=== PATIENT | male | born 1975 | race Caucasian/White ===

== ENCOUNTER 2023-05-14 23:00 | Inpatient (IN) | payer MEDICAID ==
[~2023-05-14] VITALS: Ht 185.4 cm; Wt 146.2 kg
[2023-05-14] MEDS ORDERED: ipratropium/albuterol 3ml nebule NEB ONE (23:15)
[2023-05-14 23:46] VITALS: PULSE 99; RESP 22; O2SAT 95
[2023-05-14 23:58] VITALS: PULSE 95; RESP 32; O2SAT 97
[2023-05-15] VITALS (14 sets, daily range): BP systolic 154; BP diastolic 85; PULSE 65–102; RESP 16–24; TEMP 97.9; O2SAT 91–96
[2023-05-15 00:19] LABS: BASOPHILS % (AUTO) 0.2 % (0-1); EOSINOPHILS # (AUTO) 0.1 X10'3 (0-0.9); EOSINOPHILS % (AUTO) 0.7 % (0-6); HEMATOCRIT 52.3 % (42.0-52.0); HEMOGLOBIN 17.6 g/dl (14.0-17.9); LYMPHOCYTES # (AUTO) 0.5 X10'3 (1.1-4.8); MEAN CORPUSCULAR HEMOGLOBIN 28.8 PG (27.0-31.0); MEAN CORPUSCULAR HGB CONC 33.6 g/dL (33.0-36.5); MEAN CORPUSCULAR VOLUME 85.8 FL (78-98); MEAN PLATELET VOLUME 7.9 FL (7.4-10.4); MONOCYTES # (AUTO) 0.6 X10'3 (0-0.9); MONOCYTES % (AUTO) 5.2 % (2-12); NEUTROPHILS # (AUTO) 10.3 X10'3 (1.8-7.7); NEUTROPHILS % (AUTO) 89.9 % (42-75); PLATELET COUNT 177 X10'3 (140-440); RED CELL DISTRIBUTION WIDTH 14.9 % (11.5-14.5); WHITE BLOOD COUNT 11.4 X10'3 (4.5-11.0)
[2023-05-15 01:00] LABS: ALANINE AMINOTRANSFERASE 15 U/L (12-78); ALBUMIN 3.5 G/DL (3.4-5.0); ALBUMIN/GLOBULIN RATIO 1.1 (1.1-1.5); ALKALINE PHOSPHATASE 76 IU/L (46-116); ANION GAP 9 (8-16); ASPARTATE AMINO TRANSFERASE 14 U/L (10-37); BILIRUBIN,TOTAL 1.5 MG/DL (0.1-1.0); BLOOD UREA NITROGEN 8 MG/DL (7-18); BUN/CREATININE RATIO 6.5 (10.0-20.0); CALCIUM 8.7 MG/DL (8.5-10.1); CHLORIDE 98 MMOL/L (99-107); CREATININE 1.23 MG/DL (0.60-1.10); GLUCOSE 105 MG/DL (70-104); POTASSIUM 3.8 MMOL/L (3.5-5.1); SODIUM 137 MMOL/L (135-145); TOTAL CARBON DIOXIDE 30.2 MMOL/L (24-32); TOTAL PROTEIN 6.7 G/DL (6.4-8.2); eCRCL 81 ML/MIN; eGFR 62 ML/MIN
[2023-05-15 01:07] LABS: PRO BRAIN NATRIURETIC PEPTIDE 683 PG/ML (0-125)
[2023-05-15] MEDS ORDERED: azithromycin/NS 500mg/250ml 250 ML IV ONE (01:50)
[2023-05-15] MEDS ORDERED: methylPREDNISolone sod succ 125mg/2ml vial IV ONE (01:50)
[2023-05-15] MEDS ORDERED: CefTRIAXone/D5W-Rocephin 1gm 50 ML IV ONE (01:50)
[2023-05-15] MEDS ORDERED: furosemide 10 MG/1 ML 10ml inj IV ONE (02:30)
[2023-05-15] MEDS ORDERED: albuterol 2.5 MG/3 ML nebule NEB PRN (02:30)
[2023-05-15] MEDS ORDERED: potassium Cl 20 mEq SR tablet PO PRN ×2 (02:35)
[2023-05-15] MEDS ORDERED: ondansetron/PF 4mg/2ml inj IV PRN (02:35)
[2023-05-15] MEDS ORDERED: acetaminophen 325mg tablet PO PRN (02:35)
[2023-05-15] MEDS ORDERED: mag hydrox/Alum hydrox/simeth 30ml oral suspension PO PRN (02:35)
[2023-05-15] MEDS ORDERED: potassium Cl 40MEQ/1/2NS 520ml 520 ML IV PRN (02:35)
[2023-05-15] MEDS ORDERED: magnesium 4gm in 100ml NS 100 ML IV PRN (02:35)
[2023-05-15] MEDS ORDERED: PERFLUTREN PROTEIN-A MICROSPHR (Optison) 0.22 MG/ML 3ML VIAL IV ONE (02:35)
[2023-05-15] MEDS ORDERED: magnesium 2GM in 50ml NS 50 ML IV PRN (02:35)
--- NOTE | 2023-05-15 03:34 | NUR ---
Urine output 200mL post lasix
--- NOTE | 2023-05-15 03:42 | NUR ---
100mL urine output
[2023-05-15] MEDS: ipratropium/albuterol 3ml nebule NEB SCH ×6 (04:03→23:38)
--- NOTE | 2023-05-15 05:33 | NUR ---
800mL urine output
--- NOTE | 2023-05-15 05:57 | NUR ---
600mL urine output
[2023-05-15 06:23] LABS: MAGNESIUM 2.1 MG/DL (1.5-2.4)
[2023-05-15] MEDS: azithromycin 250mg tablet PO SCH (07:37)
[2023-05-15] MEDS: docusate sod 100mg capsule PO SCH ×3 (07:39→20:06)
[2023-05-15] MEDS: methylPREDNISolone sod succ 125mg/2ml vial IV SCH ×3 (07:40→20:05)
[2023-05-15] MEDS: heparin, porcine 5000 units/ml vial SQ SCH ×2 (07:47→20:06)
--- NOTE | 2023-05-15 07:52 | NUR ---
education technician at bedside.
[2023-05-15] MEDS: CefTRIAXone/D5W-Rocephin 1gm 50 ML IV SCH (08:00)
[2023-05-15] MEDS: K and/or MAG REPLACEMENT MC SCH ×2 (08:00→19:00)
[2023-05-15] MEDS: furosemide 10 MG/1 ML 10ml inj IV SCH ×2 (09:20→20:06)
[2023-05-15] MEDS ORDERED: NO HOME MEDS (13:10)
--- NOTE | 2023-05-15 19:35 | NUR ---
pt visitor at bedside.
--- NOTE | 2023-05-15 20:15 | NUR ---
pt up to restroom, even steady gait. visitor leaving for the night.
--- NOTE | 2023-05-15 20:34 | NUR ---
PT STATES WANTS TO TRY TO GO WITHOUT OXYEGN AFTER RESTROOM. PT SPO2 94% ON ROOM AIR CURRENTLY. PT WANTS TO TRY TO FALL ASLEEP WITHOUT OXYGEN ON AND SEE HOW IT GOES.
--- NOTE | 2023-05-15 22:00 | NUR ---
Patient in room ORTHO 4022. I have received report from GUALBERTO Sharpe and had the opportunity to ask questions and assume patient care.
--- NOTE | 2023-05-15 22:05 | NUR ---
pt arrived via wheelchair. ambulated to bed. oriented to the room. settled into bed. call light in reach.
[2023-05-16] VITALS (17 sets, daily range): BP systolic 133–145; BP diastolic 54–82; PULSE 68–95; RESP 16–22; TEMP 97.4–97.6; O2SAT 92–98
[2023-05-16] MEDS: ipratropium/albuterol 3ml nebule NEB SCH ×6 (03:26→23:10)
[2023-05-16 06:17] LABS: BASOPHILS # (AUTO) 0.1 X10'3 (0-0.2); BASOPHILS % (AUTO) 0.5 % (0-1); EOSINOPHILS % (AUTO) 0 % (0-6); HEMATOCRIT 54.3 % (42.0-52.0); LYMPHOCYTES # (AUTO) 0.4 X10'3 (1.1-4.8); LYMPHOCYTES % (AUTO) 2.1 % (21-51); MEAN CORPUSCULAR HEMOGLOBIN 28.5 PG (27.0-31.0); MEAN CORPUSCULAR HGB CONC 33.4 g/dL (33.0-36.5); MEAN CORPUSCULAR VOLUME 85.3 FL (78-98); MEAN PLATELET VOLUME 8.5 FL (7.4-10.4); MONOCYTES % (AUTO) 5.7 % (2-12); NEUTROPHILS # (AUTO) 15.9 X10'3 (1.8-7.7); NEUTROPHILS % (AUTO) 91.7 % (42-75); PLATELET COUNT 216 X10'3 (140-440); RED BLOOD COUNT 6.36 X10'6 (4.70-6.10); RED CELL DISTRIBUTION WIDTH 15.1 % (11.5-14.5); WHITE BLOOD COUNT 17.4 X10'3 (4.5-11.0)
[2023-05-16 06:28] LABS: HEMOGLOBIN 18.1 g/dl (14.0-17.9)
--- NOTE | 2023-05-16 06:40 | NUR ---
Problems reprioritized. Patient report given, questions answered & plan of care reviewed with GUALBERTO Charlton.
[2023-05-16 06:48] LABS: ALANINE AMINOTRANSFERASE 16 U/L (12-78); ALBUMIN 3.2 G/DL (3.4-5.0); ALBUMIN/GLOBULIN RATIO 0.9 (1.1-1.5); ALKALINE PHOSPHATASE 68 IU/L (46-116); ANION GAP 8 (8-16); ASPARTATE AMINO TRANSFERASE 16 U/L (10-37); BILIRUBIN,TOTAL 0.7 MG/DL (0.1-1.0); BLOOD UREA NITROGEN 21 MG/DL (7-18); BUN/CREATININE RATIO 17.5 (10.0-20.0); CALCIUM 8.3 MG/DL (8.5-10.1); CHLORIDE 100 MMOL/L (99-107); GLUCOSE 144 MG/DL (70-104); MAGNESIUM 2.2 MG/DL (1.5-2.4); POTASSIUM 3.8 MMOL/L (3.5-5.1); SODIUM 137 MMOL/L (135-145); TOTAL CARBON DIOXIDE 29.2 MMOL/L (24-32); TOTAL PROTEIN 6.7 G/DL (6.4-8.2); eCRCL 83 ML/MIN; eGFR 64 ML/MIN
--- NOTE | 2023-05-16 06:55 | NUR ---
Patient in room ORTHO 4022. I have received report from GUALBERTO Amos and had the opportunity to ask questions and assume patient care.
[2023-05-16] MEDS: K and/or MAG REPLACEMENT MC SCH ×2 (08:00→19:29)
[2023-05-16] MEDS: docusate sod 100mg capsule PO SCH (08:00)
--- NOTE | 2023-05-16 08:03 | NUR ---
PAGER ID: [phone] MESSAGE: [email or web address]- [id number] pt room 402- Bill Traore- critical lab value hgb: 18.1H
[2023-05-16] MEDS: CefTRIAXone/D5W-Rocephin 1gm 50 ML IV SCH (08:16)
[2023-05-16] MEDS: azithromycin 250mg tablet PO SCH (08:16)
[2023-05-16] MEDS: heparin, porcine 5000 units/ml vial SQ SCH ×2 (08:18→19:34)
[2023-05-16] MEDS: furosemide 10 MG/1 ML 10ml inj IV SCH ×2 (08:19→19:33)
[2023-05-16] MEDS: methylPREDNISolone sod succ 125mg/2ml vial IV SCH (08:19)
[2023-05-16] MEDS: methylPREDNISolone sod succ/PF 40mg inj. IV SCH ×2 (08:50→19:34)
--- NOTE | 2023-05-16 11:25 | NUR ---
CPAP ordered for pt. Per pt, no history of SHANKAR or CPAP usage. No SOB. No current indication of CPAP need. CPAP not in use, and not in room. Addendum: 05/16/23 at 1127 by Debra Britton RT Amended: Links added.
--- NOTE | 2023-05-16 18:29 | NUR ---
Problems reprioritized. Patient report given, questions answered & plan of care reviewed with GUALBERTO Elkins. Addendum: 05/16/23 at 1842 by Latesha Mcneil RN patient was not repriortized with Brittni, but with RN. Will make a correct note
--- NOTE | 2023-05-16 18:42 | NUR ---
Problems reprioritized. Patient report given, questions answered & plan of care reviewed with GUALBERTO Roberts.
[2023-05-17] VITALS (11 sets, daily range): BP systolic 139–155; BP diastolic 60–84; PULSE 71–95; RESP 16–20; TEMP 98–98.3; O2SAT 94–98
[2023-05-17] MEDS: ipratropium/albuterol 3ml nebule NEB SCH ×4 (03:06→14:54)
--- NOTE | 2023-05-17 06:16 | NUR ---
Problems reprioritized. Patient report given, questions answered & plan of care reviewed with JAGRUTI BURCIAGA.
--- NOTE | 2023-05-17 06:20 | NUR ---
Problems reprioritized. Patient report given, questions answered & plan of care reviewed with JAGRUTI BURCIAGA.
[2023-05-17 06:58] LABS: BASOPHILS % (AUTO) 0.1 % (0-1); EOSINOPHILS % (AUTO) 0 % (0-6); HEMATOCRIT 54.3 % (42.0-52.0); HEMOGLOBIN 17.8 g/dl (14.0-17.9); LYMPHOCYTES # (AUTO) 0.7 X10'3 (1.1-4.8); LYMPHOCYTES % (AUTO) 4.4 % (21-51); MEAN CORPUSCULAR HEMOGLOBIN 28.3 PG (27.0-31.0); MEAN CORPUSCULAR HGB CONC 32.9 g/dL (33.0-36.5); MEAN CORPUSCULAR VOLUME 86.2 FL (78-98); MEAN PLATELET VOLUME 8.4 FL (7.4-10.4); MONOCYTES # (AUTO) 0.8 X10'3 (0-0.9); NEUTROPHILS # (AUTO) 14.9 X10'3 (1.8-7.7); NEUTROPHILS % (AUTO) 90.5 % (42-75); PLATELET COUNT 238 X10'3 (140-440); RED CELL DISTRIBUTION WIDTH 15.1 % (11.5-14.5); WHITE BLOOD COUNT 16.5 X10'3 (4.5-11.0)
[2023-05-17 07:05] LABS: ALANINE AMINOTRANSFERASE 24 U/L (12-78); ALBUMIN 3.2 G/DL (3.4-5.0); ALKALINE PHOSPHATASE 70 IU/L (46-116); ANION GAP 3 (8-16); ASPARTATE AMINO TRANSFERASE 16 U/L (10-37); BILIRUBIN,TOTAL 0.4 MG/DL (0.1-1.0); BLOOD UREA NITROGEN 20 MG/DL (7-18); BUN/CREATININE RATIO 18.3 (10.0-20.0); CALCIUM 8.7 MG/DL (8.5-10.1); CHLORIDE 100 MMOL/L (99-107); CREATININE 1.09 MG/DL (0.60-1.10); GLUCOSE 161 MG/DL (70-104); MAGNESIUM 2.1 MG/DL (1.5-2.4); POTASSIUM 3.9 MMOL/L (3.5-5.1); SODIUM 136 MMOL/L (135-145); TOTAL PROTEIN 6.5 G/DL (6.4-8.2); eCRCL 92 ML/MIN; eGFR 72 ML/MIN
[2023-05-17] MEDS: K and/or MAG REPLACEMENT MC SCH (08:00)
[2023-05-17] MEDS: methylPREDNISolone sod succ/PF 40mg inj. IV SCH (09:02)
[2023-05-17] MEDS: furosemide 10 MG/1 ML 10ml inj IV SCH (09:04)
[2023-05-17] MEDS: azithromycin 250mg tablet PO SCH (09:04)
[2023-05-17] MEDS: CefTRIAXone/D5W-Rocephin 1gm 50 ML IV SCH (09:04)
[2023-05-17] MEDS: heparin, porcine 5000 units/ml vial SQ SCH (09:06)
[2023-05-17] MEDS ORDERED: LEVO-65 PO (11:14)
[2023-05-17] MEDS ORDERED: PRED10TA23 PO (11:14)
[2023-05-17] MEDS ORDERED: ALBU2.5V7 NEB (11:14)
--- NOTE | 2023-05-17 15:29 | NUR ---
Pt discharged in stable condition with all belongings
[2023-05-17] MEDS ORDERED: FURO20TA4 PO (16:28)
== END 2023-05-17 15:30 | disposition home or self-care (01) | DRG 140 ==
LOC: ER 23:01 → ED HOLD 05-15 02:39 → ORTHO 4S 05-15 22:04
PROVIDERS: ADMIT Family Medicine; ATTEND Internal Medicine
DX: J44.1 Chronic obstructive pulmonary disease with (acute) exacerbation (principal); J96.01 Acute respiratory failure with hypoxia; I50.31 Acute diastolic (congestive) heart failure; G47.33 Obstructive sleep apnea (adult) (pediatric); F17.210 Nicotine dependence, cigarettes, uncomplicated; N28.9 Disorder of kidney and ureter, unspecified; F14.20 Cocaine dependence, uncomplicated; Z71.6 Tobacco abuse counseling; Z20.822 Contact with and (suspected) exposure to COVID-19
CPT/HCPCS: 36415; 71045; 80053; 83735; 83880; 84484; 85025; 87081; 87811; 93306; 94640; 94760; 99285; G0378; J0456; J0696; J1644; J1940; J2920; J2930

== ENCOUNTER 2023-06-15 15:43 | Inpatient (IN) | payer MEDICAID ==
[~2023-06-15] VITALS: Ht 185.4 cm; Wt 148.5 kg
[~2023-06-15 15:43] MED LIST: ALBU2.5V7 NEB; FURO20TA4 PO; LEVO-65 PO
[2023-06-15 17:45] LABS: BILIRUBIN,URINE SMALL (Neg); CLARITY,URINE CLEAR (Clear); COLOR,URINE YELLOW (Yellow); GLUCOSE, URINE NEGATIVE (Neg); KETONES,URINE TRACE mg/dl (Neg); LEUKOCYTE ESTERASE ,URINE NEGATIVE (Neg); NITRITES, URINE NEGATIVE (Neg); OCCULT BLOOD,URINE MODERATE (Neg); PH,URINE 6.5 (4.8-8.0); PROTEIN,URINE NEGATIVE (Neg)
[2023-06-15 17:46] LABS: UA COLLECTION TYPE CLN CATCH MIDSTREAM
[2023-06-15 17:59] LABS: MUCUS STRANDS MANY /LPF (Neg); SQUAMOUS EPITHELIAL CELL,UR FEW /LPF (FEW)
[2023-06-15 18:00] LABS: BACTERIA,URINE FEW /HPF (Neg); WBC,URINE 0-4 /HPF (0-4)
[2023-06-15] MEDS ORDERED: iohexol 350MG/ML 100ml bottle IV ONE (18:07)
[2023-06-15 18:23] LABS: EOSINOPHILS % (AUTO) 0.1 % (0-6)
[2023-06-15 18:25] LABS: BASOPHILS # (AUTO) 0.1 X10'3 (0-0.2); BASOPHILS % (AUTO) 0.4 % (0-1); HEMATOCRIT 54.1 % (42.0-52.0); LYMPHOCYTES # (AUTO) 1.1 X10'3 (1.1-4.8); LYMPHOCYTES % (AUTO) 5.6 % (21-51); MEAN CORPUSCULAR HEMOGLOBIN 28.4 PG (27.0-31.0); MEAN CORPUSCULAR HGB CONC 33.7 g/dL (33.0-36.5); MEAN CORPUSCULAR VOLUME 84.2 FL (78-98); MEAN PLATELET VOLUME 7.6 FL (7.4-10.4); MONOCYTES # (AUTO) 1.3 X10'3 (0-0.9); MONOCYTES % (AUTO) 6.3 % (2-12); NEUTROPHILS # (AUTO) 17.6 X10'3 (1.8-7.7); NEUTROPHILS % (AUTO) 87.6 % (42-75); PLATELET COUNT 230 X10'3 (140-440); RED BLOOD COUNT 6.43 X10'6 (4.70-6.10); RED CELL DISTRIBUTION WIDTH 15.1 % (11.5-14.5)
[2023-06-15 18:28] LABS: HEMOGLOBIN 18.2 g/dl (14.0-17.9)
[2023-06-15 18:42] LABS: ALANINE AMINOTRANSFERASE 19 U/L (12-78); ALBUMIN 3.5 G/DL (3.4-5.0); ALBUMIN/GLOBULIN RATIO 0.9 (1.1-1.5); ALKALINE PHOSPHATASE 81 IU/L (46-116); ANION GAP 9 (8-16); ASPARTATE AMINO TRANSFERASE 15 U/L (10-37); BILIRUBIN,TOTAL 2.4 MG/DL (0.1-1.0); BLOOD UREA NITROGEN 13 MG/DL (7-18); BUN/CREATININE RATIO 11.1 (10.0-20.0); CHLORIDE 95 MMOL/L (99-107); CREATININE 1.17 MG/DL (0.60-1.10); GLUCOSE 104 MG/DL (70-104); POTASSIUM 3.8 MMOL/L (3.5-5.1); SODIUM 132 MMOL/L (135-145); TOTAL CARBON DIOXIDE 28.5 MMOL/L (24-32); TOTAL PROTEIN 7.5 G/DL (6.4-8.2); eCRCL 85 ML/MIN; eGFR 66 ML/MIN
[2023-06-15] MEDS ORDERED: MEROPENEM 1GM/NS 100ML IVPB 100 ML IV ONE (19:55)
[2023-06-15] MEDS ORDERED: vancomycin/NS 1 GM ADD-VANTAGE 250 ML X 1 DOSE IV ONE (19:55)
[2023-06-15] MEDS ORDERED: temazepam 15mg capsule PO PRN (21:00)
[2023-06-15] MEDS ORDERED: BUDE10.22 PO (21:31)
[2023-06-15] MEDS ORDERED: AMLO10TA13 PO (21:31)
[2023-06-15] MEDS ORDERED: SACU1TAB PO (21:31)
[2023-06-15] MEDS ORDERED: ALBU90AE2 INH (21:31)
[2023-06-15] MEDS ORDERED: metoclopramide 5 mg/ml inj IV PRN (22:30)
[2023-06-15] MEDS ORDERED: mag hydrox/Alum hydrox/simeth 30ml oral suspension PO PRN (22:30)
[2023-06-15] MEDS ORDERED: diphenhydrAMINE 25mg capsule PO PRN (22:30)
[2023-06-15] MEDS ORDERED: magnesium hydroxide 30ml (MOM) UD suspension PO PRN (22:30)
[2023-06-15] MEDS ORDERED: ondansetron/PF 4mg/2ml inj IV PRN (22:30)
[2023-06-15] MEDS ORDERED: morphine 2 MG/ML inj. syringe IV PRN (22:30)
[2023-06-15] MEDS ORDERED: bisacodyl 10mg suppository rectal RC PRN (22:30)
[2023-06-15] MEDS ORDERED: ondansetron 4mg rapidly disintigrating tab PO PRN (22:30)
[2023-06-15] MEDS ORDERED: HYDROcodone/acetaminophen 5mg/325mg tablet PO PRN (22:30)
[2023-06-15] MEDS ORDERED: HYDROmorphone inj. 0.5 MG/0.5 ML DISP.SYRIN IV PRN (22:30)
[2023-06-15] MEDS ORDERED: acetaminophen 325mg tablet PO PRN (22:30)
[2023-06-15] MEDS ORDERED: HYDROcodone/acetaminophen 10/325mg tab PO PRN (22:30)
[2023-06-15] MEDS ORDERED: diphenhydrAMINE 50 mg/ml inj IV PRN (22:30)
[2023-06-15 23:06] LABS: MAGNESIUM 1.8 MG/DL (1.5-2.4); PHOSPHORUS 2.9 MG/DL (2.3-4.5); PRO BRAIN NATRIURETIC PEPTIDE 221 PG/ML (0-125)
[2023-06-15] MEDS: sodium chloride 0.45% 1,000 ML IV SCH (23:42)
[2023-06-16] VITALS (10 sets, daily range): BP systolic 132–162; BP diastolic 59–75; PULSE 78–96; RESP 16–20; TEMP 97.5–98.8; O2SAT 92–96
[2023-06-16 00:06] LABS: APTT 33 SECONDS (22-32); INR 1.1 INR; PROTHROMBIN TIME 12.1 SECONDS (9.0-12.0)
[2023-06-16 00:26] LABS: URINE AMPHETAMINE SCREEN NEGATIVE (Neg); URINE BARBITUATE SCREEN NEGATIVE (Neg); URINE BENZODIAZEPINES SCREEN NEGATIVE (Neg); URINE CANNABINOID SCREEN POSITIVE (Neg); URINE COCAINE SCREEN NEGATIVE (Neg); URINE METHADONE SCREEN NEGATIVE (Neg); URINE OPIATE SCREEN NEGATIVE (Neg); URINE PHENCYCLIDINE SCREEN NEGATIVE (Neg)
[2023-06-16 03:24] LABS: BASOPHILS # (AUTO) 0.1 X10'3 (0-0.2); BASOPHILS % (AUTO) 0.3 % (0-1); EOSINOPHILS % (AUTO) 0.1 % (0-6); HEMATOCRIT 49.8 % (42.0-52.0); HEMOGLOBIN 16.8 g/dl (14.0-17.9); LYMPHOCYTES # (AUTO) 1.4 X10'3 (1.1-4.8); LYMPHOCYTES % (AUTO) 6.3 % (21-51); MEAN CORPUSCULAR HEMOGLOBIN 28.2 PG (27.0-31.0); MEAN CORPUSCULAR HGB CONC 33.8 g/dL (33.0-36.5); MEAN CORPUSCULAR VOLUME 83.6 FL (78-98); MONOCYTES # (AUTO) 1.4 X10'3 (0-0.9); MONOCYTES % (AUTO) 6.5 % (2-12); NEUTROPHILS # (AUTO) 18.6 X10'3 (1.8-7.7); NEUTROPHILS % (AUTO) 86.8 % (42-75); PLATELET COUNT 215 X10'3 (140-440); RED BLOOD COUNT 5.96 X10'6 (4.70-6.10); RED CELL DISTRIBUTION WIDTH 14.7 % (11.5-14.5); WHITE BLOOD COUNT 21.4 X10'3 (4.5-11.0)
[2023-06-16] MEDS: piperacillin/tazo 4.5gm/100ml 100 ML IV SCH ×3 (03:26→21:05)
[2023-06-16 03:38] LABS: ALANINE AMINOTRANSFERASE 20 U/L (12-78); ALBUMIN 3.2 G/DL (3.4-5.0); ALBUMIN/GLOBULIN RATIO 0.9 (1.1-1.5); ALKALINE PHOSPHATASE 75 IU/L (46-116); ANION GAP 9 (8-16); ASPARTATE AMINO TRANSFERASE 14 U/L (10-37); BILIRUBIN,TOTAL 2.1 MG/DL (0.1-1.0); BLOOD UREA NITROGEN 13 MG/DL (7-18); BUN/CREATININE RATIO 11.1 (10.0-20.0); CALCIUM 8.9 MG/DL (8.5-10.1); CHLORIDE 96 MMOL/L (99-107); CREATININE 1.17 MG/DL (0.60-1.10); GLUCOSE 98 MG/DL (70-104); POTASSIUM 3.9 MMOL/L (3.5-5.1); SODIUM 132 MMOL/L (135-145); TOTAL CARBON DIOXIDE 27.1 MMOL/L (24-32); TOTAL PROTEIN 6.9 G/DL (6.4-8.2); eCRCL 85 ML/MIN; eGFR 66 ML/MIN
[2023-06-16] MEDS: vancomycin/NS 1 GM ADD-VANTAGE 250 ML IV SCH ×2 (06:35→15:46)
[2023-06-16] MEDS: pantoprazole 40mg Tablet.DR PO SCH (07:30)
[2023-06-16] MEDS: docusate sod 100mg capsule PO SCH ×2 (08:00→21:06)
[2023-06-16] MEDS: sodium chloride 0.45% 1,000 ML IV SCH ×2 (08:53→21:06)
[2023-06-16] MEDS: heparin, porcine 5000 units/ml vial SQ SCH (15:47)
[2023-06-16] MEDS: albuterol 2.5 MG/3 ML nebule NEB PRN (20:26)
[2023-06-16] MEDS: budesonide 0.5mg/2ml UD nebule IH SCH (20:26)
[2023-06-16] MEDS: sacubitril/valsartan 24mg-26mg tablet PO SCH (21:06)
[2023-06-16] MEDS ORDERED: VANCOMYCIN LEVEL IV ONE (21:30)
[2023-06-17] VITALS (10 sets, daily range): BP systolic 117–153; BP diastolic 50–74; PULSE 66–87; RESP 16–19; TEMP 97.8–98.4; O2SAT 95–99
[2023-06-17] MEDS: vancomycin/NS 1 GM ADD-VANTAGE 250 ML IV SCH ×2 (00:44→06:27)
[2023-06-17] MEDS: heparin, porcine 5000 units/ml vial SQ SCH ×4 (00:51→23:54)
[2023-06-17] MEDS: sodium chloride 0.45% 1,000 ML IV SCH ×2 (04:30→14:47)
[2023-06-17] MEDS: piperacillin/tazo 4.5gm/100ml 100 ML IV SCH ×3 (05:07→21:00)
[2023-06-17 06:57] LABS: BASOPHILS # (AUTO) 0.1 X10'3 (0-0.2); BASOPHILS % (AUTO) 0.4 % (0-1); EOSINOPHILS # (AUTO) 0.2 X10'3 (0-0.9); EOSINOPHILS % (AUTO) 1.2 % (0-6); HEMATOCRIT 46.5 % (42.0-52.0); HEMOGLOBIN 15.5 g/dl (14.0-17.9); LYMPHOCYTES # (AUTO) 1.6 X10'3 (1.1-4.8); MEAN CORPUSCULAR HEMOGLOBIN 28.3 PG (27.0-31.0); MEAN CORPUSCULAR HGB CONC 33.4 g/dL (33.0-36.5); MEAN CORPUSCULAR VOLUME 84.8 FL (78-98); MEAN PLATELET VOLUME 7.6 FL (7.4-10.4); MONOCYTES % (AUTO) 6.4 % (2-12); NEUTROPHILS # (AUTO) 13.2 X10'3 (1.8-7.7); PLATELET COUNT 197 X10'3 (140-440); RED BLOOD COUNT 5.48 X10'6 (4.70-6.10); RED CELL DISTRIBUTION WIDTH 14.6 % (11.5-14.5); WHITE BLOOD COUNT 16.1 X10'3 (4.5-11.0)
[2023-06-17 07:06] LABS: ALANINE AMINOTRANSFERASE 8 U/L (12-78); ALBUMIN 2.7 G/DL (3.4-5.0); ALBUMIN/GLOBULIN RATIO 0.7 (1.1-1.5); ALKALINE PHOSPHATASE 61 IU/L (46-116); ANION GAP 7 (8-16); ASPARTATE AMINO TRANSFERASE 16 U/L (10-37); BILIRUBIN,TOTAL 0.9 MG/DL (0.1-1.0); BLOOD UREA NITROGEN 11 MG/DL (7-18); BUN/CREATININE RATIO 10.9 (10.0-20.0); CALCIUM 8.6 MG/DL (8.5-10.1); CHLORIDE 99 MMOL/L (99-107); CREATININE 1.01 MG/DL (0.60-1.10); GLUCOSE 87 MG/DL (70-104); POTASSIUM 3.3 MMOL/L (3.5-5.1); SODIUM 136 MMOL/L (135-145); TOTAL CARBON DIOXIDE 29.8 MMOL/L (24-32); TOTAL PROTEIN 6.6 G/DL (6.4-8.2); eCRCL 99 ML/MIN; eGFR 78 ML/MIN
[2023-06-17] MEDS: docusate sod 100mg capsule PO SCH ×2 (08:00→21:00)
[2023-06-17] MEDS: budesonide 0.5mg/2ml UD nebule IH SCH ×2 (08:10→20:57)
[2023-06-17] MEDS: ipratropium/albuterol 3ml nebule NEB PRN (08:11)
[2023-06-17] MEDS: pantoprazole 40mg Tablet.DR PO SCH (09:46)
[2023-06-17] MEDS: amLODIPine 5mg tablet PO SCH (09:47)
[2023-06-17] MEDS: sacubitril/valsartan 24mg-26mg tablet PO SCH ×2 (09:48→20:58)
[2023-06-17] MEDS ORDERED: magnesium 2GM in 50ml NS 50 ML IV PRN (10:15)
[2023-06-17] MEDS ORDERED: potassium Cl 20 mEq SR tablet PO PRN ×2 (10:15)
[2023-06-17] MEDS ORDERED: oxyCODONE/APAP 5-325mg tablet PO PRN (10:15)
[2023-06-17] MEDS ORDERED: magnesium 4gm in 100ml NS 100 ML IV PRN (10:15)
[2023-06-17] MEDS ORDERED: potassium Cl 40MEQ/1/2NS 520ml 520 ML IV PRN (10:15)
[2023-06-17] MEDS: oxyCODONE/APAP 10/325mg tablet PO PRN ×2 (11:20→21:16)
[2023-06-17] MEDS: fluconazole-Diflucan 200mg/NS 100 ML IV SCH (13:08)
[2023-06-17] MEDS: VANCOmycin 1250MG/NS 250ml Bag 250 ML IV SCH ×2 (16:39→23:50)
[2023-06-17] MEDS: K and/or MAG REPLACEMENT MC SCH (20:00)
[2023-06-17] MEDS: albuterol 2.5 MG/3 ML nebule NEB PRN (20:57)
[2023-06-18] VITALS (9 sets, daily range): BP systolic 124–140; BP diastolic 58–86; PULSE 68–80; RESP 16–22; TEMP 97.4–98.1; O2SAT 94–97
[2023-06-18] MEDS: oxyCODONE/APAP 10/325mg tablet PO PRN ×3 (02:19→19:55)
[2023-06-18] MEDS: sodium chloride 0.45% 1,000 ML IV SCH ×3 (02:50→13:41)
[2023-06-18] MEDS: piperacillin/tazo 4.5gm/100ml 100 ML IV SCH ×3 (04:24→19:49)
[2023-06-18 06:30] LABS: BASOPHILS % (AUTO) 0.2 % (0-1); EOSINOPHILS # (AUTO) 0.3 X10'3 (0-0.9); EOSINOPHILS % (AUTO) 2.2 % (0-6); HEMATOCRIT 45.3 % (42.0-52.0); HEMOGLOBIN 15.1 g/dl (14.0-17.9); LYMPHOCYTES # (AUTO) 1.3 X10'3 (1.1-4.8); LYMPHOCYTES % (AUTO) 9.1 % (21-51); MEAN CORPUSCULAR HEMOGLOBIN 28.4 PG (27.0-31.0); MEAN CORPUSCULAR HGB CONC 33.3 g/dL (33.0-36.5); MEAN CORPUSCULAR VOLUME 85.1 FL (78-98); MEAN PLATELET VOLUME 7.6 FL (7.4-10.4); MONOCYTES # (AUTO) 0.8 X10'3 (0-0.9); MONOCYTES % (AUTO) 6.1 % (2-12); NEUTROPHILS # (AUTO) 11.3 X10'3 (1.8-7.7); NEUTROPHILS % (AUTO) 82.4 % (42-75); PLATELET COUNT 233 X10'3 (140-440); RED BLOOD COUNT 5.32 X10'6 (4.70-6.10); RED CELL DISTRIBUTION WIDTH 15.2 % (11.5-14.5); WHITE BLOOD COUNT 13.7 X10'3 (4.5-11.0)
[2023-06-18 06:31] LABS: ALANINE AMINOTRANSFERASE 29 U/L (12-78); ALBUMIN 2.8 G/DL (3.4-5.0); ALBUMIN/GLOBULIN RATIO 0.7 (1.1-1.5); ALKALINE PHOSPHATASE 69 IU/L (46-116); ANION GAP 6 (8-16); ASPARTATE AMINO TRANSFERASE 25 U/L (10-37); BILIRUBIN,TOTAL 0.6 MG/DL (0.1-1.0); BLOOD UREA NITROGEN 7 MG/DL (7-18); BUN/CREATININE RATIO 6.3 (10.0-20.0); CALCIUM 8.5 MG/DL (8.5-10.1); CHLORIDE 100 MMOL/L (99-107); CREATININE 1.12 MG/DL (0.60-1.10); GLUCOSE 112 MG/DL (70-104); POTASSIUM 3.8 MMOL/L (3.5-5.1); SODIUM 136 MMOL/L (135-145); TOTAL CARBON DIOXIDE 30.3 MMOL/L (24-32); TOTAL PROTEIN 6.8 G/DL (6.4-8.2); eCRCL 89 ML/MIN; eGFR 69 ML/MIN
[2023-06-18] MEDS: K and/or MAG REPLACEMENT MC SCH ×2 (07:34→20:00)
[2023-06-18] MEDS: docusate sod 100mg capsule PO SCH ×2 (07:42→19:57)
[2023-06-18] MEDS: sacubitril/valsartan 24mg-26mg tablet PO SCH ×2 (07:43→19:55)
[2023-06-18] MEDS: amLODIPine 5mg tablet PO SCH (07:43)
[2023-06-18] MEDS: pantoprazole 40mg Tablet.DR PO SCH (07:43)
[2023-06-18] MEDS: heparin, porcine 5000 units/ml vial SQ SCH ×2 (07:45→16:20)
[2023-06-18] MEDS: VANCOmycin 1250MG/NS 250ml Bag 250 ML IV SCH (07:47)
[2023-06-18] MEDS: ipratropium/albuterol 3ml nebule NEB PRN (08:32)
[2023-06-18] MEDS: budesonide 0.5mg/2ml UD nebule IH SCH ×2 (08:32→20:06)
[2023-06-18] MEDS: morphine 2 MG/ML inj. syringe IV PRN ×2 (09:06→13:39)
[2023-06-18] MEDS: fluconazole-Diflucan 200mg/NS 100 ML IV SCH (09:09)
[2023-06-18] MEDS ORDERED: VANCOMYCIN LEVEL IV ONE (14:30)
[2023-06-18] MEDS: VANCOMYCIN 1,500MG in NS 300ml IVPB IV SCH (16:18)
[2023-06-19] MEDS: VANCOMYCIN 1,500MG in NS 300ml IVPB IV SCH ×2 (00:58→08:19)
[2023-06-19] MEDS: heparin, porcine 5000 units/ml vial SQ SCH ×2 (00:59→07:24)
[2023-06-19] MEDS: sodium chloride 0.45% 1,000 ML IV SCH (01:02)
[2023-06-19] MEDS: piperacillin/tazo 4.5gm/100ml 100 ML IV SCH (04:36)
[2023-06-19] MEDS: oxyCODONE/APAP 10/325mg tablet PO PRN ×2 (04:40→10:52)
[2023-06-19 06:00] VITALS: BP 149/71; PULSE 74; RESP 20; TEMP 97.7; O2SAT 98
[2023-06-19 06:14] LABS: BASOPHILS # (AUTO) 0.1 X10'3 (0-0.2); BASOPHILS % (AUTO) 0.7 % (0-1); EOSINOPHILS # (AUTO) 0.4 X10'3 (0-0.9); HEMATOCRIT 46.9 % (42.0-52.0); HEMOGLOBIN 16.3 g/dl (14.0-17.9); LYMPHOCYTES # (AUTO) 1.4 X10'3 (1.1-4.8); LYMPHOCYTES % (AUTO) 13.6 % (21-51); MEAN CORPUSCULAR HEMOGLOBIN 29.1 PG (27.0-31.0); MEAN CORPUSCULAR HGB CONC 34.8 g/dL (33.0-36.5); MEAN CORPUSCULAR VOLUME 83.8 FL (78-98); MEAN PLATELET VOLUME 7.5 FL (7.4-10.4); MONOCYTES # (AUTO) 0.7 X10'3 (0-0.9); MONOCYTES % (AUTO) 7.1 % (2-12); NEUTROPHILS # (AUTO) 7.6 X10'3 (1.8-7.7); NEUTROPHILS % (AUTO) 74.6 % (42-75); PLATELET COUNT 274 X10'3 (140-440); RED CELL DISTRIBUTION WIDTH 14.5 % (11.5-14.5); WHITE BLOOD COUNT 10.1 X10'3 (4.5-11.0)
[2023-06-19 06:30] LABS: ALANINE AMINOTRANSFERASE 38 U/L (12-78); ALBUMIN 2.9 G/DL (3.4-5.0); ALBUMIN/GLOBULIN RATIO 0.7 (1.1-1.5); ALKALINE PHOSPHATASE 58 IU/L (46-116); ANION GAP 4 (8-16); ASPARTATE AMINO TRANSFERASE 29 U/L (10-37); BILIRUBIN,TOTAL 0.5 MG/DL (0.1-1.0); BLOOD UREA NITROGEN 8 MG/DL (7-18); BUN/CREATININE RATIO 8.3 (10.0-20.0); CHLORIDE 101 MMOL/L (99-107); CREATININE 0.96 MG/DL (0.60-1.10); GLUCOSE 131 MG/DL (70-104); MAGNESIUM 2.1 MG/DL (1.5-2.4); POTASSIUM 4.3 MMOL/L (3.5-5.1); SODIUM 134 MMOL/L (135-145); TOTAL CARBON DIOXIDE 28.6 MMOL/L (24-32); TOTAL PROTEIN 7.1 G/DL (6.4-8.2); eCRCL 104 ML/MIN; eGFR 83 ML/MIN
[2023-06-19] MEDS: fluconazole-Diflucan 200mg/NS 100 ML IV SCH (07:17)
[2023-06-19] MEDS: morphine 2 MG/ML inj. syringe IV PRN (07:20)
[2023-06-19] MEDS: pantoprazole 40mg Tablet.DR PO SCH (07:23)
[2023-06-19] MEDS: sacubitril/valsartan 24mg-26mg tablet PO SCH (07:23)
[2023-06-19] MEDS: amLODIPine 5mg tablet PO SCH (07:24)
[2023-06-19] MEDS: K and/or MAG REPLACEMENT MC SCH (07:25)
[2023-06-19] MEDS: docusate sod 100mg capsule PO SCH (08:00)
[2023-06-19] MEDS: budesonide 0.5mg/2ml UD nebule IH SCH (09:00)
[2023-06-19 10:00] VITALS: BP 147/78; PULSE 68; RESP 18; TEMP 97.7; O2SAT 98
[2023-06-19] MEDS ORDERED: AMOX-580 PO (12:42)
[2023-06-19] MEDS ORDERED: LEVO750T68 PO (12:42)
[2023-06-19] MEDS ORDERED: FLUC200T PO (12:42)
[2023-06-19] MEDS ORDERED: OXYC1TAB17 PO (12:46)
[2023-06-19] MEDS ORDERED: VANCOMYCIN LEVEL IV ONE (15:30)
== END 2023-06-19 13:48 | disposition home or self-care (01) | DRG 501 ==
LOC: ER 15:43 → ED HOLD 22:34 → ORTHO 4S 06-16 03:54
PROVIDERS: ADMIT Family Medicine; ATTEND Family Medicine
DX: N49.2 Inflammatory disorders of scrotum (principal); N17.0 Acute kidney failure with tubular necrosis; E87.1 Hypo-osmolality and hyponatremia; L02.215 Cutaneous abscess of perineum; B35.6 Tinea cruris; L03.315 Cellulitis of perineum; I50.42 Chronic combined systolic (congestive) and diastolic (congestive) heart failure; I11.0 Hypertensive heart disease with heart failure; R82.4 Acetonuria; R31.9 Hematuria, unspecified; L81.4 Other melanin hyperpigmentation; E87.6 Hypokalemia; E66.01 Morbid (severe) obesity due to excess calories; Z68.41 Body mass index [BMI] 40.0-44.9, adult; E86.0 Dehydration; F14.129 Cocaine abuse with intoxication, unspecified; J44.9 Chronic obstructive pulmonary disease, unspecified; K40.20 Bilateral inguinal hernia, without obstruction or gangrene, not specified as recurrent; L30.9 Dermatitis, unspecified; L73.8 Other specified follicular disorders; N44.8 Other noninflammatory disorders of the testis; N48.89 Other specified disorders of penis; S30.22XA Contusion of scrotum and testes, initial encounter; X58.XXXA Exposure to other specified factors, initial encounter; Y93.89 Activity, other specified; Y92.89 Other specified places as the place of occurrence of the external cause; Y99.8 Other external cause status; Z72.0 Tobacco use; Z79.51 Long term (current) use of inhaled steroids; Z79.899 Other long term (current) drug therapy
CPT/HCPCS: 36415; 71045; 72193; 76870; 80053; 80202; 80305; 81001; 83605; 83735; 83880; 84100; 84145; 85025; 85610; 85730; 87040; 87081; 93976; 94640; 94760; 99285; G0378; J1450; J1644; J2185; J2270; J2543; J3370; J3490; J7030; J7040; Q9967

== ENCOUNTER 2023-08-29 23:13 | Inpatient (IN) | payer MEDICAID ==
[~2023-08-29] VITALS: Ht 185.4 cm; Wt 135.0 kg
[~2023-08-29 23:13] MED LIST changes: -ALBU2.5V7 NEB; +ALBU90AE2 INH; +AMLO10TA13 PO; +AMOX-580 PO; +BUDE10.22 PO; +FLUC200T PO; -FURO20TA4 PO; -LEVO-65 PO; +LEVO750T68 PO; +OXYC1TAB17 PO; +SACU1TAB PO
[2023-08-30 00:34] LABS: MEAN PLATELET VOLUME 7.4 FL (7.4-10.4); PLATELET COUNT 227 X10'3 (140-440)
[2023-08-30 00:35] LABS: BASOPHILS # (AUTO) 0.1 X10'3 (0-0.2); BASOPHILS % (AUTO) 0.6 % (0-1); EOSINOPHILS # (AUTO) 0.1 X10'3 (0-0.9); EOSINOPHILS % (AUTO) 0.5 % (0-6); HEMATOCRIT 48.7 % (42.0-52.0); HEMOGLOBIN 16.7 g/dl (14.0-17.9); LYMPHOCYTES % (AUTO) 8.8 % (21-51); MEAN CORPUSCULAR HEMOGLOBIN 29.1 PG (27.0-31.0); MEAN CORPUSCULAR HGB CONC 34.4 g/dL (33.0-36.5); MEAN CORPUSCULAR VOLUME 84.8 FL (78-98); MONOCYTES # (AUTO) 0.7 X10'3 (0-0.9); MONOCYTES % (AUTO) 6.5 % (2-12); NEUTROPHILS # (AUTO) 9.3 X10'3 (1.8-7.7); NEUTROPHILS % (AUTO) 83.6 % (42-75); RED BLOOD COUNT 5.74 X10'6 (4.70-6.10); RED CELL DISTRIBUTION WIDTH 14.9 % (11.5-14.5); WHITE BLOOD COUNT 11.2 X10'3 (4.5-11.0)
[2023-08-30 01:01] LABS: ALANINE AMINOTRANSFERASE 16 U/L (12-78); ALBUMIN 3.4 G/DL (3.4-5.0); ALBUMIN/GLOBULIN RATIO 0.8 (1.1-1.5); ALKALINE PHOSPHATASE 104 IU/L (46-116); BILIRUBIN,TOTAL 1.8 MG/DL (0.1-1.0); BLOOD UREA NITROGEN 23 MG/DL (7-18); BUN/CREATININE RATIO 11.9 (10.0-20.0); CALCIUM 9.1 MG/DL (8.5-10.1); CHLORIDE 100 MMOL/L (99-107); CREATININE 1.93 MG/DL (0.60-1.10); GLUCOSE 123 MG/DL (70-104); SODIUM 140 MMOL/L (135-145); TOTAL CARBON DIOXIDE 28.9 MMOL/L (24-32); TOTAL PROTEIN 7.6 G/DL (6.4-8.2); eCRCL 52 ML/MIN; eGFR 37 ML/MIN
[2023-08-30 01:14] LABS: ASPARTATE AMINO TRANSFERASE 20 U/L (10-37)
[2023-08-30 01:19] LABS: POTASSIUM 3.4 MMOL/L (3.5-5.1)
[2023-08-30 01:34] LABS: ANION GAP 11 (8-16)
[2023-08-30 01:37] LABS: LIPASE > 375 U/L (16-77)
[2023-08-30 02:10] LABS: BILIRUBIN,URINE NEGATIVE (Neg); CLARITY,URINE CLEAR (Clear); COLOR,URINE YELLOW (Yellow); GLUCOSE, URINE >=1000 mg/dl (Neg); KETONES,URINE NEGATIVE (Neg); LEUKOCYTE ESTERASE ,URINE NEGATIVE (Neg); NITRITES, URINE NEGATIVE (Neg); OCCULT BLOOD,URINE LARGE (Neg); PROTEIN,URINE NEGATIVE (Neg); UROBILINOGEN,URINE 0.2 E.U/dL (0.2-1.0)
[2023-08-30 02:37] LABS: UA COLLECTION TYPE NON-SPECIFIED
[2023-08-30 02:39] LABS: BACTERIA,URINE NONE SEEN /HPF (Neg); MUCUS STRANDS FEW /LPF (Neg); RBC,URINE 0-2 /HPF (0-2); SQUAMOUS EPITHELIAL CELL,UR NONE SEEN /LPF (FEW); WBC,URINE 0-4 /HPF (0-4)
[2023-08-30] MEDS: pantoprazole 40 MG vial IV ONE (04:38)
[2023-08-30] MEDS: ondansetron/PF 4mg/2ml inj IV ONE (04:39)
[2023-08-30] MEDS: morphine 2 MG/ML inj. syringe IV STA (04:39)
[2023-08-30] MEDS: normal saline 1000ml 1,000 ML IV ONE (04:40)
[2023-08-30] MEDS: aspirin 81mg tab.chew PO ONE (04:40)
[2023-08-30 05:33] LABS: ANION GAP 9 (8-16); BLOOD UREA NITROGEN 21 MG/DL (7-18); BUN/CREATININE RATIO 10.8 (10.0-20.0); CALCIUM 8.3 MG/DL (8.5-10.1); CHLORIDE 100 MMOL/L (99-107); CREATININE 1.94 MG/DL (0.60-1.10); ETHANOL < 10 MG/DL (<10); GLUCOSE 100 MG/DL (70-104); POTASSIUM 3.3 MMOL/L (3.5-5.1); PRO BRAIN NATRIURETIC PEPTIDE 1510 PG/ML (0-125); SODIUM 138 MMOL/L (135-145); eCRCL 51 ML/MIN; eGFR 37 ML/MIN
[2023-08-30] MEDS: LidoCAINE 2% Topical Jelly 11mL syringe TOP ONE (06:10)
[2023-08-30 06:40] LABS: APTT 30 SECONDS (22-32)
[2023-08-30] MEDS: CefTRIAXone/D5W-Rocephin 1gm 50 ML IV ONE (07:26)
[2023-08-30] MEDS ORDERED: potassium Cl 40MEQ/1/2NS 520ml 520 ML IV PRN (07:30)
[2023-08-30] MEDS ORDERED: magnesium Cl slow-release 64mg tablet PO PRN (07:30)
[2023-08-30] MEDS: normal saline 1000ml 1,000 ML IV SCH (07:30)
[2023-08-30] MEDS ORDERED: magnesium 2GM in 50ml NS 50 ML IV PRN (07:30)
[2023-08-30] MEDS ORDERED: acetaminophen 325mg tablet PO PRN ×2 (07:30)
[2023-08-30] MEDS ORDERED: ondansetron/PF 4mg/2ml inj IV PRN (07:30)
[2023-08-30] MEDS ORDERED: magnesium 4gm in 100ml NS 100 ML IV PRN (07:30)
[2023-08-30] MEDS ORDERED: potassium Cl 20 mEq SR tablet PO PRN (07:30)
[2023-08-30] MEDS ORDERED: morphine 2 MG/ML inj. syringe IV PRN (07:30)
[2023-08-30] MEDS ORDERED: LORazepam 2 mg/ml vial IV PRN (07:35)
[2023-08-30] MEDS ORDERED: haloperidol 5mg tablet PO PRN (07:35)
[2023-08-30] MEDS ORDERED: haloperidol lactate 5mg/ml inj IM PRN (07:35)
[2023-08-30] MEDS ORDERED: LORazepam 1 MG tablet PO PRN (07:35)
[2023-08-30] MEDS ORDERED: folic acid 1mg/0.2ml inj IV SCH (08:00)
[2023-08-30] MEDS: thiamine 100mg/ml 2ml inj. IV SCH (10:04)
[2023-08-30] MEDS: heparin, porcine 5000 units/ml vial SQ SCH (10:05)
[2023-08-30 11:40] LABS: CHOL/HDL RATIO 2.9 (0.00-4.99); CHOLESTEROL 126 MG/DL (0-200); HDL CHOLESTEROL 44 MG/DL (35-60); LDL CHOLESTEROL 60 MG/DL (50-100); TRIGLYCERIDES 84 MG/DL (20-135)
[2023-08-30 11:48] LABS: HEMOGLOBIN A1C 5.6 % (4.5-6.2)
[2023-08-30 13:34] LABS: PHOSPHORUS 4.7 MG/DL (2.3-4.5)
[2023-08-30] MEDS: morphine 2 MG/ML inj. syringe IV PRN (15:38)
[2023-08-30 20:20] VITALS: BP 163/87; PULSE 83; RESP 20; RESP 22; TEMP 97.8; O2SAT 96
[2023-08-30] MEDS: HYDROcodone/acetaminophen 5mg/325mg tablet PO PRN (20:38)
[2023-08-30] MEDS: tamsulosin 0.4mg capsule PO SCH (20:43)
[2023-08-30 22:00] VITALS: BP 138/77; PULSE 90; RESP 16; TEMP 98.1; O2SAT 96
[2023-08-31] MEDS: potassium Cl 20 mEq SR tablet PO PRN (00:59)
[2023-08-31 05:51] LABS: ALANINE AMINOTRANSFERASE 14 U/L (12-78); ALBUMIN 2.6 G/DL (3.4-5.0); ALBUMIN/GLOBULIN RATIO 0.7 (1.1-1.5); ALKALINE PHOSPHATASE 56 IU/L (46-116); ANION GAP 12 (8-16); ASPARTATE AMINO TRANSFERASE 10 U/L (10-37); BILIRUBIN,TOTAL 0.8 MG/DL (0.1-1.0); BLOOD UREA NITROGEN 20 MG/DL (7-18); BUN/CREATININE RATIO 13.2 (10.0-20.0); CALCIUM 8.5 MG/DL (8.5-10.1); CHLORIDE 104 MMOL/L (99-107); CREATININE 1.51 MG/DL (0.60-1.10); GLUCOSE 93 MG/DL (70-104); LIPASE 67 U/L (16-77); MAGNESIUM 2.2 MG/DL (1.5-2.4); PHOSPHORUS 4.6 MG/DL (2.3-4.5); POTASSIUM 3.3 MMOL/L (3.5-5.1); SODIUM 144 MMOL/L (135-145); TOTAL CARBON DIOXIDE 28.5 MMOL/L (24-32); TOTAL PROTEIN 6.2 G/DL (6.4-8.2); eCRCL 66 ML/MIN; eGFR 49 ML/MIN
[2023-08-31 05:55] LABS: BASOPHILS % (AUTO) 0.4 % (0-1); EOSINOPHILS # (AUTO) 0.2 X10'3 (0-0.9); HEMATOCRIT 44.2 % (42.0-52.0); HEMOGLOBIN 14.9 g/dl (14.0-17.9); LYMPHOCYTES # (AUTO) 1.1 X10'3 (1.1-4.8); LYMPHOCYTES % (AUTO) 13.9 % (21-51); MEAN CORPUSCULAR HEMOGLOBIN 28.7 PG (27.0-31.0); MEAN CORPUSCULAR HGB CONC 33.7 g/dL (33.0-36.5); MEAN CORPUSCULAR VOLUME 85.1 FL (78-98); MEAN PLATELET VOLUME 7.5 FL (7.4-10.4); MONOCYTES % (AUTO) 13.1 % (2-12); NEUTROPHILS # (AUTO) 5.3 X10'3 (1.8-7.7); NEUTROPHILS % (AUTO) 69.6 % (42-75); PLATELET COUNT 208 X10'3 (140-440); RED BLOOD COUNT 5.19 X10'6 (4.70-6.10); RED CELL DISTRIBUTION WIDTH 14.9 % (11.5-14.5); WHITE BLOOD COUNT 7.6 X10'3 (4.5-11.0)
[2023-08-31 06:58] VITALS: BP 161/105; PULSE 76; RESP 20; TEMP 98.3; O2SAT 96
[2023-08-31 08:00] VITALS: RESP 20
[2023-08-31 11:00] VITALS: BP 178/102; PULSE 71; RESP 16; TEMP 98.3; O2SAT 97
[2023-08-31 13:21] VITALS: RESP 18; O2SAT 97
[2023-08-31] MEDS: amLODIPine 5mg tablet PO SCH (13:40)
[2023-08-31 17:23] VITALS: BP 197/106; PULSE 65; RESP 16; TEMP 98.6; O2SAT 98
[2023-08-31] MEDS ORDERED: labetalol 20mg/4ml (5mg/ml) syringe IV ONE (17:35)
[2023-08-31] MEDS: LidoCAINE 2% Topical Jelly 11mL syringe TOP ONE (17:45)
[2023-08-31] MEDS: LidoCAINE 2% Topical Jelly 11mL syringe MM STA (19:02)
[2023-08-31] MEDS: LidoCAINE 2% Topical Jelly 11mL syringe TOP STA (19:16)
[2023-08-31] MEDS: HYDROcodone/acetaminophen 10/325mg tab PO PRN (19:45)
[2023-08-31 20:00] VITALS: RESP 26; O2SAT 98
[2023-09-01] VITALS (8 sets, daily range): BP systolic 144–189; BP diastolic 71–93; PULSE 61–81; RESP 16–20; TEMP 97.8–98.6; O2SAT 96–99
[2023-09-01 06:16] LABS: BASOPHILS # (AUTO) 0.1 X10'3 (0-0.2); BASOPHILS % (AUTO) 0.9 % (0-1); EOSINOPHILS # (AUTO) 0.4 X10'3 (0-0.9); EOSINOPHILS % (AUTO) 5.6 % (0-6); HEMATOCRIT 44.7 % (42.0-52.0); HEMOGLOBIN 15.2 g/dl (14.0-17.9); LYMPHOCYTES # (AUTO) 1.3 X10'3 (1.1-4.8); LYMPHOCYTES % (AUTO) 19.1 % (21-51); MEAN CORPUSCULAR HEMOGLOBIN 28.7 PG (27.0-31.0); MEAN CORPUSCULAR HGB CONC 33.9 g/dL (33.0-36.5); MEAN CORPUSCULAR VOLUME 84.5 FL (78-98); MEAN PLATELET VOLUME 7.4 FL (7.4-10.4); MONOCYTES # (AUTO) 0.9 X10'3 (0-0.9); MONOCYTES % (AUTO) 13.6 % (2-12); NEUTROPHILS # (AUTO) 4.1 X10'3 (1.8-7.7); NEUTROPHILS % (AUTO) 60.8 % (42-75); PLATELET COUNT 227 X10'3 (140-440); RED CELL DISTRIBUTION WIDTH 14.7 % (11.5-14.5); WHITE BLOOD COUNT 6.8 X10'3 (4.5-11.0)
[2023-09-01 06:19] LABS: ALANINE AMINOTRANSFERASE 20 U/L (12-78); ALBUMIN 2.6 G/DL (3.4-5.0); ALBUMIN/GLOBULIN RATIO 0.7 (1.1-1.5); ALKALINE PHOSPHATASE 64 IU/L (46-116); ANION GAP 6 (8-16); ASPARTATE AMINO TRANSFERASE 23 U/L (10-37); BILIRUBIN,TOTAL 0.7 MG/DL (0.1-1.0); BLOOD UREA NITROGEN 15 MG/DL (7-18); BUN/CREATININE RATIO 9.6 (10.0-20.0); CALCIUM 8.3 MG/DL (8.5-10.1); CHLORIDE 106 MMOL/L (99-107); CREATININE 1.57 MG/DL (0.60-1.10); GLUCOSE 93 MG/DL (70-104); LIPASE 70 U/L (16-77); MAGNESIUM 1.8 MG/DL (1.5-2.4); PHOSPHORUS 4.6 MG/DL (2.3-4.5); POTASSIUM 3.3 MMOL/L (3.5-5.1); SODIUM 145 MMOL/L (135-145); TOTAL CARBON DIOXIDE 32.7 MMOL/L (24-32); TOTAL PROTEIN 6.4 G/DL (6.4-8.2); eCRCL 64 ML/MIN; eGFR 47 ML/MIN
[2023-09-01] MEDS: hydrALAZINE 20mg/ml inj. IV PRN (10:29)
[2023-09-01] MEDS ORDERED: LISI5TAB22 PO (14:02)
[2023-09-01] MEDS ORDERED: tamsulosin capsule PO (14:02)
[2023-09-01] MEDS: tamsulosin 0.4mg capsule PO STA (14:58)
== END 2023-09-01 20:42 | disposition home or self-care (01) | DRG 501 ==
LOC: ER 23:14 → ED HOLD 08-30 07:19 → SUR 3N 08-30 20:20
PROVIDERS: ADMIT Internal Medicine; ATTEND Internal Medicine
DX: N40.1 Benign prostatic hyperplasia with lower urinary tract symptoms (principal); I50.33 Acute on chronic diastolic (congestive) heart failure; N17.9 Acute kidney failure, unspecified; N13.30 Unspecified hydronephrosis; E87.20 Acidosis, unspecified; N13.8 Other obstructive and reflux uropathy; R16.0 Hepatomegaly, not elsewhere classified; N31.2 Flaccid neuropathic bladder, not elsewhere classified; I13.0 Hypertensive heart and chronic kidney disease with heart failure and stage 1 through stage 4 chronic kidney disease, or unspecified chronic kidney disease; R33.8 Other retention of urine; F15.10 Other stimulant abuse, uncomplicated; F14.10 Cocaine abuse, uncomplicated; I16.0 Hypertensive urgency; R31.9 Hematuria, unspecified; T83.89XA Other specified complication of genitourinary prosthetic devices, implants and grafts, initial encounter; Y65.8 Other specified misadventures during surgical and medical care; Y92.238 Other place in hospital as the place of occurrence of the external cause; F17.210 Nicotine dependence, cigarettes, uncomplicated; J44.9 Chronic obstructive pulmonary disease, unspecified; E66.01 Morbid (severe) obesity due to excess calories; N18.9 Chronic kidney disease, unspecified; Z68.39 Body mass index [BMI] 39.0-39.9, adult; Z79.899 Other long term (current) drug therapy
CPT/HCPCS: 36415; 71045; 74176; 76700; 76770; 80048; 80053; 80061; 80320; 81001; 83036; 83605; 83690; 83735; 83880; 84100; 84153; 84484; 85025; 85610; 85730; 87040; 87081; 93005; 99285; A4314; A4338; A4346; A4358; A5200; C9113; G0378; J0360; J0696; J1644; J2270; J2405; J3411; J7030

== ENCOUNTER 2023-10-07 03:16 | Emergency (ER) | payer MEDICAID ==
[~2023-10-07] VITALS: Ht 185.4 cm; Wt 127.3 kg
[~2023-10-07 03:16] MED LIST changes: -AMOX-580 PO; -FLUC200T PO; -LEVO750T68 PO; +LISI5TAB22 PO; -OXYC1TAB17 PO; -SACU1TAB PO; +tamsulosin capsule PO
[2023-10-07 03:26] VITALS: BP 163/112; PULSE 105; RESP 16; TEMP 98.7; O2SAT 96
== END 2023-10-07 05:02 | disposition home or self-care (01) ==
LOC: ER 03:17
DX: T83.028A Displacement of other urinary catheter, initial encounter (principal); I11.0 Hypertensive heart disease with heart failure; I50.9 Heart failure, unspecified; J44.9 Chronic obstructive pulmonary disease, unspecified; Z79.899 Other long term (current) drug therapy
CPT/HCPCS: 99281